=== PATIENT | female | born 1990 | race Caucasian/White ===

== ENCOUNTER 2018-10-30 19:50 | Outpatient (CLI) | payer OTHER ==
[2018-10-30 21:18] LABS: ADD MAN DIFF? NO
[2018-10-30 21:20] LABS: BASOPHIL # 0.1 10^3/ul (0.0-0.1); BASOPHILS % 0.6 % (0.0-2.0); EOSINOPHILS # 0.3 10^3/ul (0.0-0.5); EOSINOPHILS % 2.9 % (0.0-7.0); HEMATOCRIT 36.8 % (37.0-47.0); LYMPHOCYTES # 2.4 10^3/ul (0.8-2.9); LYMPHOCYTES % 26.2 % (15.0-51.0); MEAN CORPUSCULAR HEMOGLOBIN 28.1 pg (29.0-33.0); MEAN CORPUSCULAR HGB CONC 32.6 g/dl (32.0-37.0); MEAN CORPUSCULAR VOLUME 86.2 fl (82.0-101.0); MEAN PLATELET VOLUME 9.5 fl (7.4-10.4); MONOCYTE # 0.7 10^3/ul (0.3-0.9); MONOCYTES % 7.3 % (0.0-11.0); NEUTROPHIL # 5.6 10^3/ul (1.6-7.5); NEUTROPHILS % 62.3 % (39.0-77.0); PLATELET COUNT 268 10^3/UL (140-415); RED BLOOD COUNT 4.27 10^6/ul (4.20-5.40); RED CELL DISTRIBUTION WIDTH 13.3 % (11.5-14.5)
[2018-10-30 21:49] LABS: ADD UMIC YES; UR ASCORBIC ACID NEGATIVE (NEGATIVE); UR BACTERIA FEW /HPF (NONE SEEN); UR BILIRUBIN (Dip) NEGATIVE (NEGATIVE); UR BLOOD (Dip) 1+ mg/dL (NEGATIVE); UR CALCIUM OXALATE CRYSTAL MODERATE /HPF (NONE SEEN); UR CLARITY CLOUDY (CLEAR); UR COLOR YELLOW (YELLOW); UR GLUCOSE (Dip) NEGATIVE (NEGATIVE); UR KETONES (Dip) NEGATIVE (NEGATIVE); UR LEUKOCYTE ESTERASE (Dip) 2+ Leu/ul (NEGATIVE); UR MUCUS FEW /HPF (NONE SEEN); UR NITRITE (Dip) NEGATIVE (NEGATIVE); UR RBC 26 /HPF (0-5); UR SPECIFIC GRAVITY (Dip) 1.025 (1.003-1.030); UR SQUAMOUS EPITHELIAL CELL FEW /HPF (FEW); UR TOTAL PROTEIN (Dip) NEGATIVE (NEGATIVE); UR UROBILINOGEN (Dip) NEGATIVE (NEGATIVE); UR WBC 9 /HPF (0-5)
[2018-10-30 22:51] LABS: RUPTURE FETAL MEMBRANES NEGATIVE (NEGATIVE)
== END 2018-10-30 23:14 | disposition home or self-care (01) ==
LOC: OBT 19:50 → L-D 19:51 → OBT 23:14
DX: O26.892 Other specified pregnancy related conditions, second trimester (principal); Z3A.27 27 weeks gestation of pregnancy; R10.2 Pelvic and perineal pain
CPT/HCPCS: 76817; 76818; 81001; 84112; 85025; 87086

== ENCOUNTER 2018-12-22 17:54 | Inpatient (IN) | payer OTHER ==
[2018-12-22 18:53] LABS: ADD UMIC YES; UR ASCORBIC ACID 20 mg/dL (NEGATIVE); UR BILIRUBIN (Dip) NEGATIVE (NEGATIVE); UR BLOOD (Dip) NEGATIVE (NEGATIVE); UR CLARITY SLIGHTLY CLOUDY (CLEAR); UR COLOR YELLOW (YELLOW); UR GLUCOSE (Dip) NEGATIVE (NEGATIVE); UR KETONES (Dip) NEGATIVE (NEGATIVE); UR LEUKOCYTE ESTERASE (Dip) 2+ Leu/ul (NEGATIVE); UR NITRITE (Dip) NEGATIVE (NEGATIVE); UR RBC 1 /HPF (0-5); UR SPECIFIC GRAVITY (Dip) 1.018 (1.003-1.030); UR SQUAMOUS EPITHELIAL CELL FEW /HPF (FEW); UR TOTAL PROTEIN (Dip) NEGATIVE (NEGATIVE); UR UROBILINOGEN (Dip) NEGATIVE (NEGATIVE); UR WBC 4 /HPF (0-5)
[2018-12-22 19:10] LABS: RUPTURE FETAL MEMBRANES NEGATIVE (NEGATIVE)
[2018-12-22 19:27] LABS: ADD MAN DIFF? NO
[2018-12-22 19:31] LABS: WHITE BLOOD COUNT 12.2 10^3/ul (4.8-10.8)
[2018-12-22 19:32] LABS: BASOPHIL # 0.1 10^3/ul (0.0-0.1); BASOPHILS % 0.4 % (0.0-2.0); EOSINOPHILS # 0.3 10^3/ul (0.0-0.5); EOSINOPHILS % 2.8 % (0.0-7.0); LYMPHOCYTES # 3.1 10^3/ul (0.8-2.9); LYMPHOCYTES % 25.7 % (15.0-51.0); MEAN CORPUSCULAR HEMOGLOBIN 26.5 pg (29.0-33.0); MEAN CORPUSCULAR HGB CONC 31.6 g/dl (32.0-37.0); MEAN CORPUSCULAR VOLUME 84.1 fl (82.0-101.0); MEAN PLATELET VOLUME 10.9 fl (7.4-10.4); MONOCYTE # 1.1 10^3/ul (0.3-0.9); MONOCYTES % 8.6 % (0.0-11.0); NEUTROPHIL # 7.5 10^3/ul (1.6-7.5); NEUTROPHILS % 61.6 % (39.0-77.0); PLATELET COUNT 248 10^3/UL (140-415); RED BLOOD COUNT 4.52 10^6/ul (4.20-5.40); RED CELL DISTRIBUTION WIDTH 14.2 % (11.5-14.5)
[2018-12-22] MEDS: LACTATED RINGER'S 1,000 ML IV (20:43)
[2018-12-22] MEDS: MAGNESIUM SULFATE 4 GM/100 ML 100 ML IV (20:45)
[2018-12-22] MEDS: BETAMET NA PHOS/AC(6 MG/ML) 2 ML INJ SYG IM (21:05)
[2018-12-22] MEDS: MAGNESIUM SULFATE 20 GM/500 ML 500 ML IV (21:14)
[2018-12-22 21:45] LABS: GLUCOSE 90 mg/dl (70-220)
[2018-12-22 21:46] LABS: INR 0.92; PROTIME 12.5 Sec (11.9-14.9)
[2018-12-23 01:00] LABS: MAGNESIUM 4.2 mg/dl (1.7-2.5)
[2018-12-23] MEDS ORDERED: GLUCOSE GEL 15 GRAM TUBE PO ×2 (02:30)
[2018-12-23] MEDS ORDERED: GLUCAGON 1 MG INJ IM (02:30)
[2018-12-23] MEDS ORDERED: GLUCOSE GEL 15 GRAM TUBE BUCCAL (02:30)
[2018-12-23] MEDS: INSULIN ASPART [NOVOLOG] 3 ML PEN SC ×3 (02:30→17:35)
[2018-12-23] MEDS ORDERED: DEXTROSE 50% 50 ML SYRINGE IV ×2 (02:30)
[2018-12-23] MEDS: LACTATED RINGER'S 1,000 ML IV ×2 (06:02→19:28)
[2018-12-23 06:45] LABS: MAGNESIUM 4.8 mg/dl (1.7-2.5)
[2018-12-23] MEDS: MAGNESIUM SULFATE 20 GM/500 ML 500 ML IV ×2 (07:28→17:38)
[2018-12-23] MEDS: ACCU-CHEK XX ×4 (08:06→21:50)
[2018-12-23] MEDS: PRENATAL VITAMIN PO (09:11)
[2018-12-23 12:00] LABS: MAGNESIUM 4.9 mg/dl (1.7-2.5)
[2018-12-23 18:55] LABS: RAPID PLASMA REAGIN NONREACTIVE (NR)
[2018-12-23] MEDS: BETAMET NA PHOS/AC(6 MG/ML) 2 ML INJ SYG IM (21:06)
[2018-12-24 01:09] LABS: MAGNESIUM 5.1 mg/dl (1.7-2.5)
[2018-12-24] MEDS: MAGNESIUM SULFATE 20 GM/500 ML 500 ML IV ×3 (01:51→23:59)
[2018-12-24] MEDS: ACCU-CHEK XX ×4 (06:10→23:56)
[2018-12-24 06:43] LABS: MAGNESIUM 5.4 mg/dl (1.7-2.5)
[2018-12-24] MEDS: PRENATAL VITAMIN PO (09:45)
[2018-12-24] MEDS: LACTATED RINGER'S 1,000 ML IV ×2 (09:46→21:51)
[2018-12-24 15:46] LABS: MAGNESIUM 5.1 mg/dl (1.7-2.5)
[2018-12-24] MEDS: INSULIN ASPART [NOVOLOG] 3 ML PEN SC ×3 (19:56→20:02)
[2018-12-25] MEDS: INSULIN ASPART [NOVOLOG] 3 ML PEN SC ×3 (07:35→17:35)
[2018-12-25] MEDS: ACCU-CHEK XX ×4 (08:00→19:35)
[2018-12-25] MEDS: NIFEdipine 10 MG CAP PO ×3 (08:20→19:27)
[2018-12-25] MEDS: PRENATAL VITAMIN PO (08:21)
[2018-12-25] MEDS: LACTATED RINGER'S 1,000 ML IV (11:22)
[2018-12-25] MEDS: ACETAMINOPHEN 500 MG TAB PO (12:17)
[2018-12-26] MEDS: LACTATED RINGER'S 1,000 ML IV (00:10)
[2018-12-26] MEDS: NIFEdipine 10 MG CAP PO ×3 (01:52→14:56)
[2018-12-26] MEDS: INSULIN ASPART [NOVOLOG] 3 ML PEN SC ×2 (07:35→11:30)
[2018-12-26] MEDS: ACCU-CHEK XX ×3 (08:20→13:30)
[2018-12-26] MEDS: PRENATAL VITAMIN PO (09:08)
== END 2018-12-26 15:05 | disposition home or self-care (01) | DRG 833 ==
LOC: OBT 17:54 → L-D 17:55 → OBT 19:54 → L-D 19:54
PROVIDERS: Obstetrics & Gynecology
DX: O60.03 Preterm labor without delivery, third trimester (principal); O24.410 Gestational diabetes mellitus in pregnancy, diet controlled; O09.213 Supervision of pregnancy with history of pre-term labor, third trimester; Z3A.34 34 weeks gestation of pregnancy
CPT/HCPCS: 76815; 76818; 81001; 82947; 82962; 83735; 84112; 85025; 85610; 85730; 86592; 86850; 86900; 86901; 87086